=== PATIENT | female | born 1990 | race Caucasian/White ===

== ENCOUNTER 2018-04-22 09:23 | Observation (INO) | payer BC ==
[2018-04-23] MEDS ORDERED: Misoprostol 200 MCG Tab PO ONE ×3 (08:12→15:30)
[2018-04-23] MEDS ORDERED: Sodium Chloride 0.9% 10 ML Syringe FLUSH PRN (08:13)
[2018-04-23] MEDS ORDERED: Misoprostol 200 MCG Tab ONE (08:16)
[2018-04-23] MEDS: Lactated Ringers 1,000 ML IV SCH ×2 (08:42→11:00)
--- NOTE | 2018-04-23 08:44 | PCM.LDHP ---
<Jennifer Ziegler L - Last Filed: 04/23/18 08:19> L&D History of Present Illness - General Date of Service: 04/23/18 Admit Problem/Dx: Admission Diagnosis/Problem Admission Diagnosis/Problem Missed /Induction 04/23/18 08:20 04/23/18 08:51 Source of Information: Patient History Limitations: Reports: No Limitations - History of Present Illness Introduction:: Lora is a 27 YO white who presents today for induction following a missed . 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 Appointment at 16 4/7 wks had FHR (twin B) 136 by doppler. U/S at 19 3/7 wks showed no FHR, and measurements place the fetus at 15 5/7 wks, significant for probable missed . PMHx/SHx/FHx non-contributory. Location, : Reports: Uterus - Related Data Allergies/Adverse Reactions: Allergies Allergy/AdvReac Type Severity Reaction Status Date / Time No Known Allergies Allergy Verified 04/23/18 07:43 Home Medications: Home Meds PNV95/Ferrous Fumarate/FA [ Vitamin Tablet] 1 each PO DAILY 04/23/18 [ History] Past Medical History : 1 Para: 0 LMP (Approximate): Neurological History: Reports: Other (See Below) Other Neuro History: Pseudotumor cerebri Social & Family History - Family History Family Medical History: Noncontributory Cardiac: Reports: Other (See Below) Other Cardiac Family History: Heart disease maternal and paternal grandparents GI: Reports: Other (See Below) Other GI Family History: Biliary sclerosis - maternal grandmother Musculoskeletal: Reports: Other (See Below) Other Musculoskeletal Family History: Rheumatoid Arthritis - Sister Neurological: Reports: Cerebral Palsy (Uncle), MS (father) Endocrine/Metabolic: Reports: Diabetes, type II (maternal aunt and uncle) H&P Review of Systems - Review of Systems: General: Reports: No Symptoms HEENT: Reports: No Symptoms Pulmonary: Reports: No Symptoms Cardiovascular: Reports: No Symptoms Gastrointestinal: Reports: No Symptoms Genitourinary: Reports: No Symptoms Musculoskeletal: Reports: No Symptoms Skin: Reports: No Symptoms Psychiatric: Reports: No Symptoms Neurological: Reports: No Symptoms Hematologic/Lymphatic: Reports: No Symptoms Immunologic: Reports: No Symptoms L&D Exam - Exam Exam: See Below - Vital Signs Weight: 190 lb - Exam General: Alert, Oriented HEENT: PERRLA, Conjunctiva Clear, EACs Clear, EOMI, Hearing Intact, Mucosa Moist & [place], Nares Patent, Normal Nasal Septum, Posterior Pharynx Clear, TMs Clear Neck: Supple, Trachea Midline Lungs: Clear to Auscultation, Normal Respiratory Effort Cardiovascular: Regular Rate, Regular Rhythm GI/Abdominal Exam: Normal Bowel Sounds, Soft, Non-Tender, No Organomegaly, No Distention, No Mass, Pelvis Stable Rectal Exam: Normal Rectal Tone Genitourinary: Normal external exam, Normal bimanual exam Extremities: Normal Inspection, Normal Range of Motion, Non-Tender, No Pedal Edema, Normal Capillary Refill Skin: Warm, Dry, Intact Psychiatric: Alert, Normal Affect Orders Last 24hrs: Active Orders 24 hr Category Date Time Status Vital Signs [RC] PER UNIT ROUTINE Care 04/23/18 08:12 Active Regular Diet [DIET] Diet 04/23/18 Lunch Active Lactated Ringers [Ringers, Lactated] 1,000 ml Med 04/23/18 08:15 Active IV ASDIRECTED Sodium Chloride 0.9% [Saline Flush] Med 04/23/18 08:13 Active 10 ml FLUSH ASDIRECTED PRN Saline Lock Insert [OM.PC] Routine Oth 04/23/18 08:13 Ordered Medication Orders Lactated Ringer's (Ringers, Lactated) 1,000 mls @ 125 mls/hr IV ASDIRECTED MATTEO Sodium Chloride (Saline Flush) 10 ml FLUSH ASDIRECTED PRN PRN Reason: Keep Vein Open Assessment/Plan Comment:: Plan induction for passage of miscarried fetus. Misoprostol PV with possible pitocin supplementation, possible D&C PRN <Bolivar Shaikh - Last Filed: 04/23/18 09:06> L&D History of Present Illness - General Admit Problem/Dx: Admission Diagnosis/Problem Admission Diagnosis/Problem - History of Present Illness Introduction:: Blood type O-positive, antibody screen negative. HIV nonreactive. Hepatitis B surface antigen nonreactive. RPR nonreactive. GC and chlamydia not detected. Rubella immune. Image:/Hematocrit 13.5/39.6 H&P Review of Systems - Review of Systems: Review Of Systems: See Below L&D Exam - Vital Signs Vital Signs: Last Vital Signs Temp 97.8 F 04/23/18 08:12 Pulse 74 04/23/18 08:12 Resp 18 04/23/18 08:12 BP 124/62 04/23/18 08:12 Pulse Ox - Problem List (1) Missed with demise before 20 completed weeks of gestation SNOMED Code(s): 86555823 ICD Code: O02.1 - MISSED Status: Acute Current Visit: Yes (2) 17 weeks gestation of SNOMED Code(s): 90873350 ICD Code: Z3A.17 - 17 WEEKS GESTATION OF Status: Acute Current Visit: Yes (3) Vanishing twin syndrome SNOMED Code(s): 454050919 ICD Code: O31.21X0 - CONT PREG AFT UTERIN DTH OF ONE FTS OR MORE, FIRST TRI, UNSP Status: Acute Current Visit: Yes Problem List Initiated/Reviewed/Updated: No Orders Last 24hrs: Active Orders 24 hr Category Date Time Status Vital Signs [RC] PER UNIT ROUTINE Care 04/23/18 08:12 Active Regular Diet [DIET] Diet 04/23/18 Lunch Active Lactated Ringers [Ringers, Lactated] 1,000 ml Med 04/23/18 08:15 Active IV ASDIRECTED Sodium Chloride 0.9% [Saline Flush] Med 04/23/18 08:13 Active 10 ml FLUSH ASDIRECTED PRN Saline Lock Insert [OM.PC] Routine Oth 04/23/18 08:13 Ordered Medication Orders Lactated Ringer's (Ringers, Lactated) 1,000 mls @ 125 mls/hr IV ASDIRECTED MATTEO Last Admin: 04/23/18 08:42 Dose: 125 mls/hr Sodium Chloride (Saline Flush) 10 ml FLUSH ASDIRECTED PRN PRN Reason: Keep Vein Open Assessment/Plan Comment:: Patient seen and examined by me and discussed with the student.
--- NOTE | 2018-04-23 09:25 | PCM.SN ---
- Free Text/Narrative Note: 200 mcg cytotec x4 intravaginal at 0827, cervix long and closed, firm, posterior.
[2018-04-23] MEDS ORDERED: Atropine/Diphenoxylate 0.025-2.5 MG Tab PO PRN (10:58)
[2018-04-23] MEDS ORDERED: Ondansetron 4 MG/2 ML SDV IVPUSH PRN ×2 (11:02→18:53)
--- NOTE | 2018-04-23 11:26 | PCM.SN ---
- Free Text/Narrative Note: Cytotec 800 mcg placed in vagina, no cervical change as yet.
[2018-04-23] MEDS: Acetaminophen 325 MG Tab PO PRN ×2 (12:09→17:35)
--- NOTE | 2018-04-23 16:57 | PCM.SN ---
- Free Text/Narrative Note: Cytotec placed 800 mcg intravaginal. Cervix still closed, long, but patient experiencing stronger contractions.
[2018-04-23] MEDS ORDERED: fentaNYL 100 MCG/2 ML SDV EPIDUR PRN (18:53)
[2018-04-23] MEDS ORDERED: ePHEDrine 50 MG/ML SDV IVPUSH PRN (18:53)
[2018-04-23] MEDS ORDERED: diphenhydrAMINE 50 MG/ML SDV IVPUSH PRN (18:53)
[2018-04-23] MEDS ORDERED: Bupivacaine/fentaNYL/NS 100 ML Bag EPIDUR SCH (19:00)
[2018-04-23] MEDS ORDERED: Oxytocin/Lactated Ringers 20 UNIT/1,000 ML BAG IV ONE ×2 (19:23→21:16)
--- NOTE | 2018-04-23 19:58 | PCM.OPNOTE ---
- General Post-Op/Procedure Note Date of Surgery/Procedure: 04/23/18 Operative Procedure(s): Completion of missed surgically 59011 second trimester Pre Op Diagnosis: Z3A.16, diamniotic dichorionic twin gestation, missed , vanishing twin Post-Op Diagnosis: Same Anesthesia Technique: Moderate Sedation Primary Surgeon: Bolivar Shaikh Reason Data Systems Analyst Was Necessary: NA Role of Data Systems Analyst: NA EBL in mLs: 100 Complications: None Condition: Good Free Text/Narrative:: Intake & Output 04/23/18 04/23/18 04/23/18 06:59 14:59 22:59 Intake Total 1600 180 Balance 1600 180 Patient had spontaneous rupture membranes at 1858 hrs. on Saturday04/23/18 The first twin (twin A) delivered at 1917 hrs. examination strongly suggest male genitalia. Twin B delivered at 1925 hrs. gender was undetermined Both placentas appeared to be intact grossly-diamniotic dichorionic twin gestation. The missed with Completed surgically without difficulty. Placenta will be sent to the lab. Patient and have decided to have a service for the twins. Impression Z3A.16 Vanishing twin syndrome Dichorionic diamniotic twin gestation Missed -completed surgically
[2018-04-23] MEDS ORDERED: Acetaminophen 325 MG Tab PO PRN (20:07)
[2018-04-23] MEDS ORDERED: Ibuprofen 600 MG Tab PO PRN (20:07)
[2018-04-23] MEDS ORDERED: Oxytocin/Lactated Ringers 10 UNIT/1,000 ML BAG IV SCH (20:15)
--- NOTE | 2018-04-24 08:49 | PCM.DCSUM1 ---
Discharge Summary - Hospital Course Free Text/Narrative:: [facility] Post-Op/Procedure Note Patient Name: CARY MARTINEZ Date of : 89 Patient Status: Observation Attending Provider: Bolivar Shaikh Date: 04/23/18 19:50 Initialization Date: 04/23/18 19:50 - General Post-Op/Procedure Note Date of Surgery/Procedure: 04/23/18 Operative Procedure(s): Completion of missed surgically 57248 second trimester Pre Op Diagnosis: Z3A.16, diamniotic dichorionic twin gestation, missed , vanishing twin Post-Op Diagnosis: Same Anesthesia Technique: Moderate Sedation Primary Surgeon: Bolivar Shaikh Reason Glaze Carrier Was Necessary: NA Role of Glaze Carrier: NA EBL in mLs: 100 Complications: None Condition: Good Free Text/Narrative:: Intake & Output 04/23/18 04/23/18 04/23/18 06:59 14:59 22:59 Intake Total 1600 180 Balance 1600 180 Patient had spontaneous rupture membranes at 1858 hrs. on Saturday04/23/18 The first twin (twin A) delivered at 1917 hrs. examination strongly suggest male genitalia. Twin B delivered at 1925 hrs. gender was undetermined Both placentas appeared to be intact grossly-diamniotic dichorionic twin gestation. The missed with Completed surgically without difficulty. Placenta will be sent to the lab. Patient and have decided to have a service for the twins. Impression Z3A.16 Vanishing twin syndrome Dichorionic diamniotic twin gestation Missed -completed surgically Quant [facility] [place] 315 on 04/24/2018 HPI Initial Comments: [facility] Post-Op/Procedure Note Patient Name: CARY MARTINEZ Date of : 89 Patient Status: Observation Attending Provider: Bolivar Shaikh Date: 04/23/18 19:50 Initialization Date: 04/23/18 19:50 - General Post-Op/Procedure Note Date of Surgery/Procedure: 04/23/18 Operative Procedure(s): Completion of missed surgically 73798 second trimester Pre Op Diagnosis: Z3A.16, diamniotic dichorionic twin gestation, missed , vanishing twin Post-Op Diagnosis: Same Anesthesia Technique: Moderate Sedation Primary Surgeon: Bolivar Shaikh Reason Glaze Carrier Was Necessary: NA Role of Glaze Carrier: NA EBL in mLs: 100 Complications: None Condition: Good Free Text/Narrative:: Intake & Output 04/23/18 04/23/18 04/23/18 06:59 14:59 22:59 Intake Total 1600 180 Balance 1600 180 Patient had spontaneous rupture membranes at 1858 hrs. on Saturday04/23/18 The first twin (twin A) delivered at 1917 hrs. examination strongly suggest male genitalia. Twin B delivered at 1925 hrs. gender was undetermined Both placentas appeared to be intact grossly-diamniotic dichorionic twin gestation. The missed with Completed surgically without difficulty. Placenta will be sent to the lab. Patient and have decided to have a service for the twins. Impression Z3A.16 Vanishing twin syndrome Dichorionic diamniotic twin gestation Missed -completed surgically Quant [facility] [place] 315 on 04/24/2018 Brief History: [facility] . Post-Op/Procedure Note. [facility]: [id number]. Date of : Patient Status: Observation. [facility]ending [facility]: [id number]. Date: 04/23/18 19:50Initialization Date: 04/23/18 19:50. - General Post-Op/Procedure Note. Date of Surgery/Procedure: 04/23/18. Operative Procedure(s): Completion of missed surgically 17652 second trimester. Pre Op Diagnosis: Z3A.16, diamniotic dichorionic twin gestation, missed , vanishing twin. Post-Op Diagnosis: Same. Anesthesia Technique : Moderate Sedation. Primary Surgeon: Bolivar Shaikh. Reason Glaze Carrier Was Necessary: NA. Role of Glaze Carrier: NA. EBL in mLs: 100. Complications: None. Condition: Good. Free Text/Narrative:: Intake & Output. 04/23/1808/ . 06:5914:5922:59. Intake [id number]. [id number]. Patient had spontaneous rupture membranes at 1858 hrs. on Saturday04/23/18. The first twin (twin A) delivered at 1917 hrs. examination strongly suggest male genitalia. Twin B delivered at 1925 hrs. gender was undetermined. Both placentas appeared to be intact grossly-diamniotic dichorionic twin gestation. The missed with. Completed surgically without difficulty. Placenta will be sent to the lab. Patient and have decided to have a service for the twins. Impression. Z3A.16. Vanishing twin syndrome. Dichorionic diamniotic twin gestation. Missed -completed surgically. Quant [facility] [place] 315 on 04/24/2018 Diagnosis: Stroke: No - Discharge Data Discharge Date: 04/24/18 Discharge Disposition: Home, Self-Care 01 Condition: Good - Discharge Diagnosis/Problem(s) (1) Missed with demise before 20 completed weeks of gestation SNOMED Code(s): 28581117 ICD Code: O02.1 - MISSED Status: Acute Current Visit: Yes (2) 17 weeks gestation of SNOMED Code(s): 26043973 ICD Code: Z3A.17 - 17 WEEKS GESTATION OF Status: Acute Current Visit: Yes (3) Vanishing twin syndrome SNOMED Code(s): 813337990 ICD Code: O31.21X0 - CONT PREG AFT UTERIN DTH OF ONE FTS OR MORE, FIRST TRI, UNSP Status: Acute Current Visit: Yes - Patient Summary/Data Operative Procedure(s) Performed: Completion of missed surgically 62071 second trimester Complications: None Consults: None Hospital Course: Uneventful - Patient Instructions Diet: Usual Diet as Tolerated Driving: Do Not Drive (48 hours) Showering/Bathing: May Shower, No Tub Bathing/Swimming (6 weeks) Notify Provider of: Fever, Increased Pain, Swelling and Redness, Drainage, Nausea and/or Vomiting - Discharge Plan *PRESCRIPTION DRUG MONITORING PROGRAM REVIEWED*: Not Applicable *COPY OF PRESCRIPTION DRUG MONITORING REPORT IN PATIENT SEVEN: Not Applicable Prescriptions/Med Rec: Acetaminophen [Tylenol] 650 mg PO Q6H #50 tablet Home Medications: Home Meds PNV95/Ferrous Fumarate/FA [ Vitamin Tablet] 1 each PO DAILY 04/23/18 [ History] Acetaminophen [Tylenol] 650 mg PO Q6H #50 tablet 04/24/18 [Rx] Ibuprofen [Motrin] 600 mg PO Q4H PRN tablet 04/24/18 [Rx] Referrals: Bolivar Shaikh MD [Primary Care Provider] - (2 weeks) - Discharge Summary/Plan Comment DC Time >30 min.: No - Patient Data Vitals - Most Recent: Last Vital Signs Temp 97.8 F 04/24/18 03:00 Pulse 76 04/24/18 03:00 Resp 16 04/24/18 03:00 BP 134/52 L 04/24/18 03:00 Pulse Ox 97 04/24/18 03:00 Weight - Most Recent: 190 lb I&O - Last 24 hours: Intake & Output 04/23/18 04/24/18 04/24/18 22:59 06:59 14:59 Intake Total 180 Balance 180 Lab Results - Last 24 hrs: Laboratory Results - last 24 hr 04/23/18 04/23/18 04/24/18 Range/Units 10:14 10:14 05:55 WBC 9.61 11.89 H (3.98-10.04) K/mm3 RBC 4.15 3.71 L (3.98-5.22) M/mm3 Hgb 13.1 11.5 (11.2-15.7) gm/L Hct 38.2 34.3 (34.1-44.9) % MCV 92.0 92.5 (79.4-94.8) fl MCH 31.6 31.0 (25.6-32.2) pg MCHC 34.3 33.5 (32.2-35.5) g/dl RDW Std Deviation 42.7 41.8 (36.4-46.3) fL Plt Count 212 206 (182-369) K/mm3 MPV 10.1 10.0 (9.4-12.3) fl Neut % (Auto) 77.6 H 73.3 H (34.0-71.1) % Lymph % (Auto) 15.7 L 18.3 L (19.3-51.7) % Ford % (Auto) 6.1 7.9 (4.7-12.5) % Eos % (Auto) 0.3 L 0.3 L (0.7-5.8) Baso % (Auto) 0.1 0.1 (0.1-1.2) % Neut # (Auto) 7.45 H 8.72 H (1.56-6.13) K/mm3 Lymph # (Auto) 1.51 2.17 (1.18-3.74) K/mm3 Ford # (Auto) 0.59 H 0.94 H (0.24-0.36) K/mm3 Eos # (Auto) 0.03 L 0.04 (0.04-0.36) K/mm3 Baso # (Auto) 0.01 0.01 (0.01-0.08) K/mm3 HCG, Quant mIU/mL Blood Type O POSITIVE Gel Antibody Screen Negative 04/24/18 Range/Units 05:55 WBC (3.98-10.04) K/mm3 RBC (3.98-5.22) M/mm3 Hgb (11.2-15.7) gm/L Hct (34.1-44.9) % MCV (79.4-94.8) fl MCH (25.6-32.2) pg MCHC (32.2-35.5) g/dl RDW Std Deviation (36.4-46.3) fL Plt Count (182-369) K/mm3 MPV (9.4-12.3) fl Neut % (Auto) (34.0-71.1) % Lymph % (Auto) (19.3-51.7) % Ford % (Auto) (4.7-12.5) % Eos % (Auto) (0.7-5.8) Baso % (Auto) (0.1-1.2) % Neut # (Auto) (1.56-6.13) K/mm3 Lymph # (Auto) (1.18-3.74) K/mm3 Ford # (Auto) (0.24-0.36) K/mm3 Eos # (Auto) (0.04-0.36) K/mm3 Baso # (Auto) (0.01-0.08) K/mm3 HCG, Quant 315.0 mIU/mL Blood Type Gel Antibody Screen Med Orders - Current: Current Medications Acetaminophen (Tylenol) 650 mg PO Q4H PRN PRN Reason: mild pain or fever Last Admin: 04/23/18 23:13 Dose: 650 mg Oxytocin/Lactated Ringer's (Pitocin In Lr 10 Units/1,000 Ml) 10 unit in 1,000 mls @ 100 mls/hr IV ASDIRECTED [facility] Ibuprofen (Motrin) 600 mg PO Q4H PRN PRN Reason: Mild pain or fever Last Admin: 04/24/18 00:58 Dose: 600 mg Discontinued Medications Acetaminophen (Tylenol) 650 mg PO Q6H PRN PRN Reason: pain Last Admin: 04/23/18 17:35 Dose: 650 mg Diphenhydramine HCl (Benadryl) 25 mg IVPUSH Q6H PRN PRN Reason: Pruritis Diphenoxylate HCl/Atropine (Lomotil 0.025-2.5 Mg) 2 tab PO QID PRN PRN Reason: Diarrhea Ephedrine Sulfate (Ephedrine Sulfate) 5 mg IVPUSH ASDIRECTED PRN PRN Reason: Hypotension Fentanyl (Sublimaze) 100 mcg EPIDUR ONETIME PRN PRN Reason: Pain Fentanyl/Bupivacaine HCl (Fentanyl/Bupivacaine/Ns 2 Mcg-0.125% 100 Ml) 100 ml EPIDUR ASDIRECTED [facility] Lactated Ringer's (Ringers, Lactated) 1,000 mls @ 125 mls/hr IV ASDIRECTED [facility] Last Admin: 04/23/18 11:00 Dose: 125 mls/hr Oxytocin/Lactated Ringer's (Pitocin In Lr 20 Units/1,000 Ml) Confirm Administered Dose 20 unit in 1,000 mls @ as directed IV .STK-MED ONE Stop: 04/23/18 19:24 Last Admin: 04/23/18 19:25 Dose: 750 mls/hr Oxytocin 20 unit/ Lactated (Ringer's) 1,002 mls @ 500 mls/hr IV ASDIRECTED [facility] ; Protocol Oxytocin/Lactated Ringer's (Pitocin In Lr 20 Units/1,000 Ml) Confirm Administered Dose 20 unit in 1,000 mls @ as directed IV .STK-MED ONE Stop: 04/23/18 21:17 Last Admin: 04/23/18 21:24 Dose: 100 mls/hr Misoprostol (Cytotec) 800 mcg PO ONETIME ONE Stop: 04/23/18 08:13 Last Admin: 04/23/18 08:39 Dose: 800 mcg Misoprostol (Cytotec) Confirm Administered Dose 800 mcg .ROUTE .STK-MED ONE Stop: 04/23/18 08:17 Last Admin: 04/23/18 11:06 Dose: Not Given Misoprostol (Cytotec) 800 mcg PO ONETIME ONE Stop: 04/23/18 11:31 Last Admin: 04/23/18 11:30 Dose: 800 mcg Misoprostol (Cytotec) 800 mcg PO ONETIME ONE Stop: 04/23/18 15:31 Last Admin: 04/23/18 16:55 Dose: 800 mcg Ondansetron HCl (Zofran) 4 mg IVPUSH Q8H PRN PRN Reason: Nausea/Vomiting Ondansetron HCl (Zofran) 4 mg IVPUSH ONETIME PRN PRN Reason: Nausea/Vomiting Sodium Chloride (Saline Flush) 10 ml FLUSH ASDIRECTED PRN PRN Reason: Keep Vein Open
== END 2018-04-24 09:45 | disposition home or self-care (01) ==
LOC: JD.OBCHECK 09:23 → JD.OB 04-23 06:53 → JD.OBCHECK 04-23 06:53 → EDSTATUS 04-23 07:38 → JD.OB 04-23 19:25
PROVIDERS: ADMIT Obstetrics & Gynecology; ATTEND Obstetrics & Gynecology
DX: O02.1 Missed abortion (principal); O31.22X1 Continuing pregnancy after intrauterine death of one fetus or more, second trimester, fetus 1; O31.22X2 Continuing pregnancy after intrauterine death of one fetus or more, second trimester, fetus 2
CPT/HCPCS: 36415; 59821; 84702; 85025; 86850; 86900; 86901; A9270; J2590; J7120; 96361; 96365; 96366; G0378

== ENCOUNTER 2019-02-06 00:38 | Inpatient (IN) | payer BC ==
[2019-02-06] MEDS ORDERED: Lactated Ringers 1,000 ML ONE ×3 (02:09→03:47)
[2019-02-06] MEDS ORDERED: Sodium Chloride 0.9% 10 ML Syringe FLUSH PRN ×2 (02:09→04:32)
[2019-02-06] MEDS ORDERED: Nalbuphine 10 MG/1 ML Vial IVPUSH PRN (02:09)
[2019-02-06] MEDS ORDERED: Lactated Ringers 1,000 ML IV SCH (02:15)
[2019-02-06] MEDS ORDERED: Metoclopramide 10 MG/2 ML SDV ONE (02:59)
[2019-02-06] MEDS ORDERED: Citric Acid/Sodium Citrate Solution 30 ML Cup ONE (02:59)
--- NOTE | 2019-02-06 03:10 | PCM.LDHP ---
L&D History of Present Illness - General Date of Service: 02/06/19 Admit Problem/Dx: Patient Status Order with Admit Dx/Problem 02/06/19 00:58 Patient Status [ADT] Routine 02/06/19 02:10 Patient Status [ADT] Routine Admission Diagnosis/Problem Admission Diagnosis/Problem Source of Information: Patient History Limitations: Reports: No Limitations - History of Present Illness Introduction:: 28 y/o EGA 29w3d with breech/transverse lie completely dilated and spontaneous rupture of membranes at approximately 0245, clear fluid.Plan emergency section Quality: Reports: Ache, Dull, Pressure Improves with: Reports: None Worsens with: Reports: None Associated Symptoms: Reports: N - Related Data Allergies/Adverse Reactions: Allergies Allergy/AdvReac Type Severity Reaction Status Date / Time No Known Allergies Allergy Verified 02/06/19 01:33 Home Medications: Home Meds PNV95/Ferrous Fumarate/FA [ Vitamin Tablet] 1 each PO DAILY 04/23/18 [ History] Acetaminophen [Tylenol] 650 mg PO Q6H #50 tablet 04/24/18 [Rx] Ibuprofen [Motrin] 600 mg PO Q4H PRN tablet 04/24/18 [Rx] Past Medical History - Past Health History Medical/Surgical History: Denies Medical/Surgical History Gastrointestinal History: Reports: None 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: Neurological History: Reports: Other (See Below) Other Neuro History: Pseudotumor cerebri - Past Surgical History GI Surgical History: Reports: Cholecystectomy Social & Family History - Family History Family Medical History: Noncontributory Cardiac: Reports: Other (See Below) Other Cardiac Family History: Heart disease maternal and paternal grandparents GI: Reports: Other (See Below) Other GI Family History: Biliary sclerosis - maternal grandmother Musculoskeletal: Reports: Other (See Below) Other Musculoskeletal Family History: Rheumatoid Arthritis - Sister Neurological: Reports: Cerebral Palsy, MS Endocrine/Metabolic: Reports: Diabetes, type II - Tobacco Use Smoking Status *Q: Never Smoker Second Hand Smoke Exposure: No - Caffeine Use Caffeine Use: Reports: None - Recreational Drug Use Recreational Drug Use: No H&P Review of Systems - Review of Systems: Review Of Systems: See Below General: Reports: No Symptoms HEENT: Reports: No Symptoms Pulmonary: Reports: No Symptoms Cardiovascular: Reports: No Symptoms Gastrointestinal: Reports: No Symptoms Genitourinary: Reports: No Symptoms Musculoskeletal: Reports: No Symptoms Skin: Reports: No Symptoms Psychiatric: Reports: No Symptoms Neurological: Reports: No Symptoms Hematologic/Lymphatic: Reports: No Symptoms Immunologic: Reports: No Symptoms L&D Exam - Exam Exam: See Below - Vital Signs Weight: 224 lb - OB Specific Fundal Height In cm: 36 Movement: Active Heart Tones: Present Heart Tones per Min: 140 (135) Heart Rate (FHR) Variability: Moderate (6-25 bmp) Presentation: Breech - Medina Score Medina Score Cervix Position: Anterior Medina Score Consistency: Soft Medina Score Dilation: > 5 cm Medina Score 's Station: +1, +2 - Exam General: Alert, Oriented HEENT: Conjunctiva Clear, Mucosa Moist & [place], PERRLA Neck: Supple, Trachea Midline Lungs: Clear to Auscultation, Normal Respiratory Effort Cardiovascular: Regular Rate, Regular Rhythm GI/Abdominal Exam: Normal Bowel Sounds, Soft, Non-Tender Genitourinary: Normal external exam, Normal bimanual exam, Normal speculum exam Back Exam: Normal Inspection, Full Range of Motion Extremities: Normal Inspection, Normal Range of Motion, Non-Tender, No Pedal Edema, Normal Capillary Refill Skin: Warm, Dry, Intact Neurological: Reflexes Equal Bilateral Psychiatric: Alert, Normal Affect, Normal Mood - Patient Data Lab Results Last 24 hrs: Laboratory Results - last 24 hr 02/06/19 02/06/19 Range/Units 01:30 02:20 WBC 14.95 H (3.98-10.04) K/mm3 RBC 4.09 (3.98-5.22) M/mm3 Hgb 12.7 (11.2-15.7) gm/L Hct 36.9 (34.1-44.9) % MCV 90.2 (79.4-94.8) fl MCH 31.1 (25.6-32.2) pg MCHC 34.4 (32.2-35.5) g/dl RDW Std Deviation 42.4 (36.4-46.3) fL Plt Count 170 L (182-369) K/mm3 MPV 10.7 (9.4-12.3) fl Neut % (Auto) 73.8 H (34.0-71.1) % Lymph % (Auto) 17.3 L (19.3-51.7) % [place] % (Auto) 8.0 (4.7-12.5) % Eos % (Auto) 0.3 L (0.7-5.8) Baso % (Auto) 0.1 (0.1-1.2) % Neut # (Auto) 11.04 H (1.56-6.13) K/mm3 Lymph # (Auto) 2.58 (1.18-3.74) K/mm3 [place] # (Auto) 1.20 H (0.24-0.36) K/mm3 Eos # (Auto) 0.04 (0.04-0.36) K/mm3 Baso # (Auto) 0.02 (0.01-0.08) K/mm3 Urine Color Yellow (Yellow) Urine Appearance Clear (Clear) Urine pH 7.0 (5.0-8.0) Ur Specific [place] 1.015 (1.005-1.030) Urine Protein Negative (Negative) Urine Glucose (UA) Negative (Negative) Urine Ketones Negative (Negative) Urine Occult Blood Trace-intact H (Negative) Urine Nitrite Negative (Negative) Urine Bilirubin Negative (Negative) Urine Urobilinogen 0.2 (0.2-1.0) Ur Leukocyte Esterase 2+ H (Negative) Urine RBC 0-5 (0-5) /hpf Urine WBC 5-10 H (0-5) /hpf Ur Squamous Epith Cells 0-5 (0-5) /hpf Urine Bacteria Few (FEW) /hpf Urine Mucus Few (FEW) /hpf Result Diagrams: 02/06/19 02:20 - Problem List (1) 29 weeks gestation of SNOMED Code(s): 70211843 ICD Code: Z3A.29 - 29 WEEKS GESTATION OF Status: Acute Current Visit: Yes (2) Premature labor SNOMED Code(s): 0955665 ICD Code: O60.00 - LABOR WITHOUT DELIVERY, UNSPECIFIED TRIMESTER Status: Acute Current Visit: Yes Qualifiers: labor trimester: third trimester labor delivery status: with delivery in third trimester Fetus number: fetus 1 of multiple gestation Qualified Code(s): O60.14X1 - labor third trimester with delivery third trimester, fetus 1 (3) Breech presentation SNOMED Code(s): 0096524 ICD Code: O32.1XX0 - MATERNAL CARE FOR BREECH PRESENTATION, UNSP Status: Acute Current Visit: Yes Qualifiers: Fetus number: fetus 1 of multiple gestation Qualified Code(s): O32.1XX1 - Maternal care for breech presentation, fetus 1 (4) Transverse lie of fetus SNOMED Code(s): 98765329 ICD Code: O32.2XX0 - MATERNAL CARE FOR TRANSVERSE AND OBLIQUE LIE, UNSP Status: Acute Current Visit: Yes Qualifiers: Fetus number: fetus 2 of multiple gestation Qualified Code(s): O32.2XX2 - Maternal care for transverse and oblique lie, fetus 2 (5) Dichorionic diamniotic twin in second trimester SNOMED Code(s): 201201833 ICD Code: O30.042 - TWIN , DICHORIONIC/DIAMNIOTIC, SECOND TRIMESTER Status: Acute Current Visit: No Problem List Initiated/Reviewed/Updated: No Orders Last 24hrs: Active Orders 24 hr Category Date Time Status Patient Status [ADT] Routine ADT 02/06/19 02:10 Active Activity as Tolerated [RC] PFP Care 02/06/19 02:10 Active Communication Order [RC] ASDIRECTED Care 02/06/19 02:10 Active Heart Tones [RC] ASDIRECTED Care 02/06/19 02:10 Active Non Stress Test [RC] PER UNIT ROUTINE Care 02/06/19 00:58 Active Non Stress Test [RC] PER UNIT ROUTINE Care 02/06/19 02:10 Active Notify Provider [RC] PFP Care 02/06/19 02:10 Active Notify Provider [RC] PRN Care 02/06/19 02:10 Active Peripheral IV Care [RC] . DIRECTED Care 02/06/19 02:10 Active Vital Signs [RC] PER UNIT ROUTINE Care 02/06/19 00:58 Active Vital Signs [RC] PER UNIT ROUTINE Care 02/06/19 02:10 Active OB Ltd 1 or More Fetus [US] Routine Exams 02/06/19 02:06 Ordered CULTURE URINE [RM] Routine Lab 02/06/19 01:30 Received RAPID PLASMA REAGIN,RPR [CHEM] Routine Lab 02/06/19 02:20 Received TYPE AND SCREEN [BBK] Stat Lab 02/06/19 02:20 Received Lactated Ringers [Ringers, Lactated] 1,000 ml Med 02/06/19 02:15 Active IV ASDIRECTED Nalbuphine [Nubain] Med 02/06/19 02:09 Active 10 mg IVPUSH Q2H PRN Sodium Chloride 0.9% [Saline Flush] Med 02/06/19 02:09 Active 10 ml FLUSH ASDIRECTED PRN Electronic Heart Tones Ext w TOCO [WOMSER] Oth 02/06/19 02:10 Ordered Routine Electronic Heart Tones Internal [WOMSER] Per Unit Ot 02/06/19 02:10 Ordered Routine Peripheral IV Insertion Adult [OM.PC] Routine Oth 02/06/19 02:10 Ordered Resuscitation Status Routine Resus Stat 02/06/19 00:58 Ordered Medication Orders Lactated Ringer's (Ringers, Lactated) 1,000 mls @ 100 mls/hr IV ASDIRECTED MATTEO Nalbuphine HCl (Nubain) 10 mg IVPUSH Q2H PRN PRN Reason: Pain Sodium Chloride (Saline Flush) 10 ml FLUSH ASDIRECTED PRN PRN Reason: Keep Vein Open Assessment/Plan Comment:: emergency delivery by section if possible
--- NOTE | 2019-02-06 03:11 | PCM.PREANE ---
Preanesthetic Assessment - Anesthesia/Transfusion/Family Hx Anesthesia History: Prior Anesthesia Without Reaction Family History of Anesthesia Reaction: No Transfusion History: No Prior Transfusion(s) Intubation History: Unknown - Review of Systems General: No Symptoms Pulmonary: No Symptoms Cardiovascular: No Symptoms Gastrointestinal: No Symptoms (GERD) Neurological: No Symptoms Other: Reports: None - Physical Assessment NPO Status Date: 02/05/19 NPO Status Time: 19:00 Pulse: 67 O2 Sat by Pulse Oximetry: 99 Respiratory Rate: 20 Blood Pressure: 137/62 Temperature: 37.1 C Height: 1.63 m Weight: 101.605 kg ASA Class: 2E Mental Status: Alert & Oriented x3 Airway Class: Mallampati = 2 Dentition: Reports: Normal Dentition, Caries Thyro-Mental Finger Breadths: 3 Mouth Opening Finger Breadths: 3 ROM/Head Extension: Full Lungs: Clear to Auscultation, Normal Respiratory Effort Cardiovascular: Regular Rate, Regular Rhythm, No Murmurs - Lab Values: Laboratory Last Values WBC 14.95 K/mm3 (3.98-10.04) H 02/06/19 02:20 RBC 4.09 M/mm3 (3.98-5.22) 02/06/19 02:20 Hgb 12.7 gm/L (11.2-15.7) 02/06/19 02:20 Hct 36.9 % (34.1-44.9) 02/06/19 02:20 MCV 90.2 fl (79.4-94.8) 02/06/19 02:20 MCH 31.1 pg (25.6-32.2) 02/06/19 02:20 MCHC 34.4 g/dl (32.2-35.5) 02/06/19 02:20 RDW Std Deviation 42.4 fL (36.4-46.3) 02/06/19 02:20 Plt Count 170 K/mm3 (182-369) L 02/06/19 02:20 MPV 10.7 fl (9.4-12.3) 02/06/19 02:20 Neut % (Auto) 73.8 % (34.0-71.1) H 02/06/19 02:20 Lymph % (Auto) 17.3 % (19.3-51.7) L 02/06/19 02:20 [place] % (Auto) 8.0 % (4.7-12.5) 02/06/19 02:20 Eos % (Auto) 0.3 (0.7-5.8) L 02/06/19 02:20 Baso % (Auto) 0.1 % (0.1-1.2) 02/06/19 02:20 Neut # (Auto) 11.04 K/mm3 (1.56-6.13) H 02/06/19 02:20 Lymph # (Auto) 2.58 K/mm3 (1.18-3.74) 02/06/19 02:20 [place] # (Auto) 1.20 K/mm3 (0.24-0.36) H 02/06/19 02:20 Eos # (Auto) 0.04 K/mm3 (0.04-0.36) 02/06/19 02:20 Baso # (Auto) 0.02 K/mm3 (0.01-0.08) 02/06/19 02:20 Urine Color Yellow (Yellow) 02/06/19 01:30 Urine Appearance Clear (Clear) 02/06/19 01:30 Urine pH 7.0 (5.0-8.0) 02/06/19 01:30 Ur Specific [place] 1.015 (1.005-1.030) 02/06/19 01:30 Urine Protein Negative (Negative) 02/06/19 01:30 Urine Glucose (UA) Negative (Negative) 02/06/19 01:30 Urine Ketones Negative (Negative) 02/06/19 01:30 Urine Occult Blood Trace-intact (Negative) H 02/06/19 01:30 Urine Nitrite Negative (Negative) 02/06/19 01:30 Urine Bilirubin Negative (Negative) 02/06/19 01:30 Urine Urobilinogen 0.2 (0.2-1.0) 02/06/19 01:30 Ur Leukocyte Esterase 2+ (Negative) H 02/06/19 01:30 Urine RBC 0-5 /hpf (0-5) 02/06/19 01:30 Urine WBC 5-10 /hpf (0-5) H 02/06/19 01:30 Ur Squamous Epith Cells 0-5 /hpf (0-5) 02/06/19 01:30 Urine Bacteria Few /hpf (FEW) 02/06/19 01:30 Urine Mucus Few /hpf (FEW) 02/06/19 01:30 All lab values reviewed and noted and within acceptable ranges to proceed with procedure. 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: Neurological History: Reports: Other (See Below) Other Neuro History: Pseudotumor cerebri - Past Surgical History GI Surgical History: Reports: Cholecystectomy - SUBSTANCE USE Smoking Status *Q: Never Smoker Second Hand Smoke Exposure: No Recreational Drug Use History: No - HOME MEDS Home Medications: Home Meds PNV95/Ferrous Fumarate/FA [ Vitamin Tablet] 1 each PO DAILY 04/23/18 [ History] Acetaminophen [Tylenol] 650 mg PO Q6H #50 tablet 04/24/18 [Rx] Ibuprofen [Motrin] 600 mg PO Q4H PRN tablet 04/24/18 [Rx] - CURRENT (IN HOUSE) MEDS Current Meds: Current Medications Lactated Ringer's (Ringers, Lactated) 1,000 mls @ 100 mls/hr IV ASDIRECTED MATTEO Nalbuphine HCl (Nubain) 10 mg IVPUSH Q2H PRN PRN Reason: Pain Sodium Chloride (Saline Flush) 10 ml FLUSH ASDIRECTED PRN PRN Reason: Keep Vein Open Discontinued Medications Citric Acid/Sodium Citrate (Bicitra Solution) Confirm Administered Dose 30 ml .ROUTE .STK-MED ONE Stop: 02/06/19 03:00 Lactated Ringer's (Ringers, Lactated) Confirm Administered Dose 1,000 mls @ as directed .ROUTE .STK-MED ONE Stop: 02/06/19 02:10 Metoclopramide HCl (Reglan) Confirm Administered Dose 10 mg .ROUTE .STK-MED ONE Stop: 02/06/19 03:00
[2019-02-06] MEDS ORDERED: Oxytocin 10 Units/1 ML SDV ONE (03:18)
[2019-02-06] MEDS ORDERED: Ondansetron 4 MG/2 ML SDV ONE (03:18)
[2019-02-06] MEDS ORDERED: ceFAZolin 1 GM Vial ONE (03:18)
[2019-02-06] MEDS ORDERED: Lanolin/Mineral Oil/Petrolatum Ophth Oint 3.5 GM Tube ONE (03:18)
[2019-02-06] MEDS ORDERED: Morphine PF 10 MG/10 ML SDV ONE (03:19)
[2019-02-06] MEDS ORDERED: Ketorolac 30 MG/ML SDV ONE (03:41)
[2019-02-06] MEDS ORDERED: Phenylephrine/Normal Saline 100 MCG/ML 10 ML Syringe ONE (03:42)
[2019-02-06] MEDS ORDERED: Bupivacaine 0.5% 30 ML SDV ONE (03:44)
[2019-02-06] MEDS ORDERED: Meperidine 50 MG/ML Vial ONE (03:45)
[2019-02-06] MEDS ORDERED: diphenhydrAMINE 50 MG/ML SDV IVPUSH PRN ×2 (03:50→04:32)
[2019-02-06] MEDS ORDERED: HYDROmorphone 0.5 MG/0.5 ML Syringe IVPUSH PRN (03:50)
[2019-02-06] MEDS ORDERED: fentaNYL 100 MCG/2 ML SDV IVPUSH PRN (03:50)
[2019-02-06] MEDS ORDERED: ePHEDrine 50 MG/ML SDV IVPUSH PRN ×2 (03:50→04:32)
[2019-02-06] MEDS ORDERED: Ondansetron 4 MG/2 ML SDV IVPUSH PRN (03:50)
[2019-02-06] MEDS ORDERED: Phenylephrine 1 MG in Sodium Chloride 0.9% 10 ML IV SCH (04:00)
--- NOTE | 2019-02-06 04:18 | PCM.OPNOTE ---
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 Timeout performed. Prepared and draped in a sterile fashion utilizing iodine prep. Adequate level of anesthesia was confirmed and in the operating room transverse incision made and care was sharp section to into the anterior fascia peritoneal cavity was entered without difficulty bladder flap created pushed caudad. Low segment transverse was performed with blood-tinged amnionic fluid upon entry into the amnionic cavity. Nurse assisted pushing the breech vaginally towards the incision and the head of the breech was carefully delivered and the remaining portion the body was delivered. Twin A's cord was clamped with a straight clamp. Twin B was transverse lie with head to the maternal left the feet were grasped and the breech was carefully delivered through the incision gently delivering the right and left arm and head without difficulty. When these cord was clamped with a curved clamp. Cord blood was then collected from twin A and then twin B's cord and the placenta was removed manually. Inspection of the placenta suggested possible marginal abruption on one edge of the placenta, placenta sent to pathology for tissue evaluation. Endometrial cavity was inspected. Sponge needle pack and asthma count correct upon closure of the uterus. Both tubes and ovaries appeared normal. The low segment transverse was closed in 2 layers using 0 Monocryl running locking suture for the first layer and second layer closed with a horizontal modified Lembert suture (imbricating) hemostasis was obtained one additional [id number] suture at the junction of the left and middle third of the incision. Uterus replaced into the abdominal cavity after cleaning clots from the gutters and cul-de-sac. Reinspection of the operative site showed no bleeding. Sponge needle pack instrument count correct 2 and the abdominal cavity was closed with #1 PDS running suture. The irrigation of subcutaneoustissue was performed and skin was closed with subcuticular 3-0 Monocryl with Henry needle and Dermabond Preneo applied. Clots were cleaned from the vagina at the end the procedure. Patient was transported postanesthesia care unit in satisfactory condition. Twin A was delivered at 0334 hrs 1250 Grams/2#12..1 oz, 4/6/7.. male liveborn twin B was delivered at 0336 hrs, female liveborn 1350 grams/2#15.6 oz 0/3/7 pediatricians were present at delivery (Dr. Ruiz, Dr. Dc) and cared for the newborns. This note was created, at least in part, by the use of [employer] voice dictation system. Inadvertent typographical errors, due to software recognition problems, may exist.
--- NOTE | 2019-02-06 04:20 | PCM.POSTAN ---
POST ANESTHESIA ASSESSMENT - MENTAL STATUS Mental Status: Alert - VITAL SIGNS Pulse Rate: 68 SaO2: 100 Resp Rate: 17 Blood Pressure: 99/51 Temperature: 36.6 C - RESPIRATORY Respiratory Status: Respiratory Rate WNL, Airway Patent, O2 Saturation Stable - CARDIOVASCULAR CV Status: Pulse Rate WNL, Blood Pressure Stable - GASTROINTESTINAL GI Status: No Symptoms - POST OP HYDRATION Hydration Status: Adequate & Stable
[2019-02-06] MEDS ORDERED: Dextrose 5%-Lactated Ringers 1,000 ML IV SCH (04:32)
[2019-02-06] MEDS ORDERED: Ondansetron 4 MG/2 ML SDV IV PRN (04:32)
[2019-02-06] MEDS ORDERED: Acetaminophen/oxyCODONE 325-5 MG Tab PO PRN (04:32)
[2019-02-06] MEDS ORDERED: Lanolin 100% Cream 7 GM Tube TOP PRN (04:32)
[2019-02-06] MEDS ORDERED: Naloxone 0.4 MG/ML SDV IVPUSH PRN (04:32)
[2019-02-06] MEDS ORDERED: Acetaminophen 325 MG Tab PO PRN (04:32)
--- NOTE | 2019-02-06 07:38 | US ---
Limited obstetrical ultrasound: Multiple real-time images were obtained for position. Twin gestation is seen. Fetus is breech in presentation and inferior to twin B. Twin B is transverse in position with head to maternal left side and superior in location to twin A. Placenta is posterior. Cervix is not well seen. Amniotic fluid: Largest pocket around twin A is 0.6 cm and largest pocket around twin B is 6.3 cm. Heart rate: Twin A: 135 bpm Twin B: 150 bpm Impression: 1. Position as noted above. Oligohydramnios noted compatible with clinical history of impending delivery. Diagnostic code #2 I agree with preliminary report from [facility], finalized on 02/06/19, 5:19 AM Central Time
[2019-02-06] MEDS: Simethicone 80 MG Tab.Chew PO SCH ×3 (08:25→16:02)
[2019-02-06] MEDS: Ketorolac 30 MG/ML SDV IVPUSH SCH ×2 (10:09→16:02)
--- NOTE | 2019-02-06 10:39 | PCM.DCSUM1 ---
Discharge Summary - Hospital Course Free Text/Narrative:: [facility] Post-Op/Procedure Note Patient Name: CARY MARTINEZ Date of : 89 Patient Status: Inpatient Attending Provider: Bolivar Shaikh Date: 02/06/19 04:10 Initialization Date: 02/06/19 04:10 - General Post-Op/Procedure Note Date of Surgery/Procedure: 02/06/19 Operative Procedure(s): low segment transverse Pre Op Diagnosis: 29 weeks plus gestation, twin , breech/transverse lie , labor (completely dilated with spontaneous rupture membranes at approximately 0245 hours clear fluid) Post-Op Diagnosis: Same Anesthesia Technique: Spinal Primary Surgeon: Bolivar Shaikh Secondary Surgeon: Delgado Lee Anesthesia Provider: Vivienne Purvis Reason Compliance Administrator Was Necessary: Difficulty of surgery, decrease comorbidity and mortality, retraction Role of Compliance Administrator: Difficulty of surgery, decrease comorbidity and mortality, retraction Fluid Replacement, Intraop: 1,500 Output, Urine Amount: 325 EBL in mLs: 600 Drain/Tube Comments:: Alvarado Complications: None Condition: Good Free Text/Narrative:: Patient was transported to the operating room and placed under spinal anesthesia in the supine position with wedge under the right hip and right flank SCDs in place and functioning prior surgery Ancef 2 g given intravenously prior surgery. Timeout performed. Prepared and draped in a sterile fashion utilizing iodine prep. Adequate level of anesthesia was confirmed and in the operating room transverse incision made and care was sharp section to into the anterior fascia peritoneal cavity was entered without difficulty bladder flap created pushed caudad. Low segment transverse was performed with blood-tinged amnionic fluid upon entry into the amnionic cavity. Nurse assisted pushing the breech vaginally towards the incision and the head of the breech was carefully delivered and the remaining portion the body was delivered. Twin A's cord was clamped with a straight clamp. Twin B was transverse lie with head to the maternal left the feet were grasped and the breech was carefully delivered through the incision gently delivering the right and left arm and head without difficulty. When these cord was clamped with a curved clamp. Cord blood was then collected from twin A and then twin B's cord and the placenta was removed manually. Inspection of the placenta suggested possible marginal abruption on one edge of the placenta, placenta sent to pathology for tissue evaluation. Endometrial cavity was inspected. Sponge needle pack and asthma count correct upon closure of the uterus. Both tubes and ovaries appeared normal. The low segment transverse was closed in 2 layers using 0 Monocryl running locking suture for the first layer and second layer closed with a horizontal modified Lembert suture (imbricating) hemostasis was obtained one additional [id number] suture at the junction of the left and middle third of the incision. Uterus replaced into the abdominal cavity after cleaning clots from the gutters and cul-de-sac. Reinspection of the operative site showed no bleeding. Sponge needle pack instrument count correct 2 and the abdominal cavity was closed with #1 PDS running suture. The irrigation of subcutaneoustissue was performed and skin was closed with subcuticular 3-0 Monocryl with Henry needle and Dermabond Preneo applied. Clots were cleaned from the vagina at the end the procedure. Patient was transported postanesthesia care unit in satisfactory condition. Twin A was delivered at 0334 hrs 1250 Grams/2#12..1 oz, 4/6/7.. male liveborn twin B was delivered at 0336 hrs, female liveborn 1350 grams/2#15.6 oz 0/3/7 pediatricians were present at delivery (Dr. Ruiz, Dr. Dc) and cared for the newborns. This note was created, at least in part, by the use of [employer] voice dictation system. Inadvertent typographical errors, due to software recognition problems, may exist. Patient doing well, will be dismissed at 1630 after next dose of Toradol. Will ride to see newborns (transferred due to 29 weeks gestation) RTC 02/17/19 HPI Initial Comments: [facility] Post-Op/Procedure Note Patient Name: CARY MARTINEZ Date of : 89 Patient Status: Inpatient Attending Provider: Bolivar Shaikh Date: 02/06/19 04:10 Initialization Date: 02/06/19 04:10 - General Post-Op/Procedure Note Date of Surgery/Procedure: 02/06/19 Operative Procedure(s): low segment transverse Pre Op Diagnosis: 29 weeks plus gestation, twin , breech/transverse lie , labor (completely dilated with spontaneous rupture membranes at approximately 0245 hours clear fluid) Post-Op Diagnosis: Same Anesthesia Technique: Spinal Primary Surgeon: Bolivar Shaikh Secondary Surgeon: Delgado Lee Anesthesia Provider: Vivienne Purvis Reason Compliance Administrator Was Necessary: Difficulty of surgery, decrease comorbidity and mortality, retraction Role of Compliance Administrator: Difficulty of surgery, decrease comorbidity and mortality, retraction Fluid Replacement, Intraop: 1,500 Output, Urine Amount: 325 EBL in mLs: 600 Drain/Tube Comments:: Alvarado Complications: None Condition: Good Free Text/Narrative:: Patient was transported to the operating room and placed under spinal anesthesia in the supine position with wedge under the right hip and right flank SCDs in place and functioning prior surgery Ancef 2 g given intravenously prior surgery. Timeout performed. Prepared and draped in a sterile fashion utilizing iodine prep. Adequate level of anesthesia was confirmed and in the operating room transverse incision made and care was sharp section to into the anterior fascia peritoneal cavity was entered without difficulty bladder flap created pushed caudad. Low segment transverse was performed with blood-tinged amnionic fluid upon entry into the amnionic cavity. Nurse assisted pushing the breech vaginally towards the incision and the head of the breech was carefully delivered and the remaining portion the body was delivered. Twin A's cord was clamped with a straight clamp. Twin B was transverse lie with head to the maternal left the feet were grasped and the breech was carefully delivered through the incision gently delivering the right and left arm and head without difficulty. When these cord was clamped with a curved clamp. Cord blood was then collected from twin A and then twin B's cord and the placenta was removed manually. Inspection of the placenta suggested possible marginal abruption on one edge of the placenta, placenta sent to pathology for tissue evaluation. Endometrial cavity was inspected. Sponge needle pack and asthma count correct upon closure of the uterus. Both tubes and ovaries appeared normal. The low segment transverse was closed in 2 layers using 0 Monocryl running locking suture for the first layer and second layer closed with a horizontal modified Lembert suture (imbricating) hemostasis was obtained one additional [id number]-bvrdn suture at the junction of the left and middle third of the incision. Uterus replaced into the abdominal cavity after cleaning clots from the gutters and cul-de-sac. Reinspection of the operative site showed no bleeding. Sponge needle pack instrument count correct 2 and the abdominal cavity was closed with #1 PDS running suture. The irrigation of subcutaneoustissue was performed and skin was closed with subcuticular 3-0 Monocryl with Henry needle and Dermabond Preneo applied. Clots were cleaned from the vagina at the end the procedure. Patient was transported postanesthesia care unit in satisfactory condition. Twin A was delivered at 0334 hrs 1250 Grams/2#12..1 oz, 4/6/7.. male liveborn twin B was delivered at 0336 hrs, female liveborn 1350 grams/2#15.6 oz 0/3/7 pediatricians were present at delivery (Dr. Ruiz, Dr. Dc) and cared for the newborns. This note was created, at least in part, by the use of [employer] voice dictation system. Inadvertent typographical errors, due to software recognition problems, may exist. Patient doing well, will be dismissed at 1630 after next dose of Toradol. Will ride to see newborns (transferred due to 29 weeks gestation) RTC 02/17/19 Brief History: [facility] . Post-Op/Procedure Note. [facility]: [id number]. Date of : Patient Status: Inpatient. Attending Provider: Bolivar Shaikhccount Number: [id number]. Date: 02/06/19 04:10Initialization Date: 02/06/19 04:10. - General Post-Op/Procedure Note. Date of Surgery/Procedure: 02/06/19. Operative Procedure(s): low segment transverse . Pre Op Diagnosis: 29 weeks plus gestation, twin , breech/transverse lie, labor ( completely dilated with spontaneous rupture membranes at approximately 0245 hours clear fluid). Post-Op Diagnosis: Same. Anesthesia Technique: Spinal. Primary Surgeon: Bolivar Shaikh. Secondary Surgeon: Delgado Lee. Anesthesia Provider: Vivienne J Grosulak. Reason Compliance Administrator Was Necessary: Difficulty of surgery, decrease comorbidity and mortality, retraction. Role of Compliance Administrator: Difficulty of surgery, decrease comorbidity and mortality, retraction. Fluid Replacement, Intraop: 1,500. Output, Urine Amount: 325. EBL in mLs: 600. Drain/Tube Comments:: Alvarado. Complications: None. Condition : Good. Free Text/Narrative:: Patient was transported to the operating room and placed under spinal anesthesia in the supine position with wedge under the right hip and right flank SCDs in place and functioning prior surgery Ancef 2 g given intravenously prior surgery. Timeout performed. Prepared and draped in a sterile fashion utilizing iodine prep. Adequate level of anesthesia was confirmed and in the operating room transverse incision made and care was sharp section to into the anterior fascia peritoneal cavity was entered without difficulty bladder flap created pushed caudad. Low segment transverse C- section was performed with blood-tinged amnionic fluid upon entry into the amnionic cavity. Nurse assisted pushing the breech vaginally towards the incision and the head of the breech was carefully delivered and the remaining portion the body was delivered. Twin A's cord was clamped with a straight clamp. Twin B was transverse lie with head to the maternal left the feet were grasped and the breech was carefully delivered through the incision gently delivering the right and left arm and head without difficulty. When these cord was clamped with a curved clamp. Cord blood was then collected from twin A and then twin B's cord and the placenta was removed manually. Inspection of the placenta suggested possible marginal abruption on one edge of the placenta, placenta sent to pathology for tissue evaluation. Endometrial cavity was inspected. Sponge needle pack and asthma count correct upon closure of the uterus. Both tubes and ovaries appeared normal. The low segment transverse C- section was closed in 2 layers using 0 Monocryl running locking suture for the first layer and second layer closed with a horizontal modified Lembert suture ( imbricating) hemostasis was obtained one additional [id number] suture at the junction of the left and middle third of the incision. Uterus replaced into the abdominal cavity after cleaning clots from the gutters and cul-de-sac. Reinspection of the operative site showed no bleeding. Sponge needle pack instrument count correct 2 and the abdominal cavity was closed with #1 PDS running suture. The irrigation of subcutaneoustissue was performed and skin was closed with subcuticular 3-0 Monocryl with Henry needle and Dermabond Preneo applied. Clots were cleaned from the vagina at the end the procedure. Patient was transported postanesthesia care unit in satisfactory condition. Twin A was delivered at 0334 hrs 1250 Grams/2#12..1 oz, 4/6/7.. male liveborn twin B was delivered at 0336 hrs, female liveborn 1350 grams/2#15.6 oz 0/3/7 pediatricians were present at delivery (Dr. Ruiz, Dr. Dc) and cared for the newborns. This note was created, at least in part, by the use of [employer] voice dictation system. Inadvertent typographical errors, due to software recognition problems, may exist. Patient doing well, will be dismissed at 1630 after next dose of Toradol. Will ride to see newborns (transferred due to 29 weeks gestation). RTC 02/17/19 Diagnosis: Stroke: No - Discharge Data Discharge Date: 02/06/19 Discharge Disposition: Home, Self-Care 01 Condition: Good - Discharge Diagnosis/Problem(s) (1) 29 weeks gestation of SNOMED Code(s): 18169077 ICD Code: Z3A.29 - 29 WEEKS GESTATION OF Status: Acute Current Visit: Yes (2) Premature labor SNOMED Code(s): 1048781 ICD Code: O60.00 - LABOR WITHOUT DELIVERY, UNSPECIFIED TRIMESTER Status: Acute Current Visit: Yes Qualifiers: labor trimester: third trimester labor delivery status: with delivery in third trimester Fetus number: fetus 1 of multiple gestation Qualified Code(s): O60.14X1 - labor third trimester with delivery third trimester, fetus 1 (3) Breech presentation SNOMED Code(s): 4409264 ICD Code: O32.1XX0 - MATERNAL CARE FOR BREECH PRESENTATION, UNSP Status: Acute Current Visit: Yes Qualifiers: Fetus number: fetus 1 of multiple gestation Qualified Code(s): O32.1XX1 - Maternal care for breech presentation, fetus 1 (4) Transverse lie of fetus SNOMED Code(s): 74964530 ICD Code: O32.2XX0 - MATERNAL CARE FOR TRANSVERSE AND OBLIQUE LIE, UNSP Status: Acute Current Visit: Yes Qualifiers: Fetus number: fetus 2 of multiple gestation Qualified Code(s): O32.2XX2 - Maternal care for transverse and oblique lie, fetus 2 (5) Dichorionic diamniotic twin in second trimester SNOMED Code(s): 151484129 ICD Code: O30.042 - TWIN , DICHORIONIC/DIAMNIOTIC, SECOND TRIMESTER Status: Acute Current Visit: No - Patient Summary/Data Operative Procedure(s) Performed: low segment transverse Complications: None Consults: None Hospital Course: Uneventful - Patient Instructions Diet: Usual Diet as Tolerated Driving: Do Not Drive (2 weeks) Showering/Bathing: May Shower, No Tub Bathing/Swimming (6 weeks) Wound/Incision Care: Keep Operative Site/Wound Site Clean and Dry Notify Provider of: Fever, Increased Pain, Swelling and Redness, Drainage, Nausea and/or Vomiting - Discharge Plan *PRESCRIPTION DRUG MONITORING PROGRAM REVIEWED*: Yes *COPY OF PRESCRIPTION DRUG MONITORING REPORT IN PATIENT SEVEN: Yes Prescriptions/Med Rec: Acetaminophen 325 mg PO Q6H #50 capsule Acetaminophen/oxyCODONE [Percocet 325-5 MG] 1 - 2 tab PO Q6H PRN #30 tablet PRN Reason: Pain (Moderate 4-6) Ondansetron [Zofran ODT] 4 mg PO Q6H PRN #20 tab.dis PRN Reason: Nausea Home Medications: Home Meds PNV95/Ferrous Fumarate/FA [ Vitamin Tablet] 1 each PO DAILY 04/23/18 [ History] Acetaminophen [Tylenol] 650 mg PO Q6H #50 tablet 04/24/18 [Rx] Acetaminophen 325 mg PO Q6H #50 capsule 02/06/19 [Rx] Acetaminophen/oxyCODONE [Percocet 325-5 MG] 1 - 2 tab PO Q6H PRN #30 tablet [Rx] Ibuprofen [Motrin] 600 mg PO Q6H PRN tablet 02/06/19 [Rx] Ibuprofen [Motrin] 600 mg PO Q6H PRN #0 tablet 02/06/19 [Rx] Lanolin [Lansinoh HPA] 1 applic TOP ASDIRECTED PRN tube 02/06/19 [Rx] Ondansetron [Zofran ODT] 4 mg PO Q6H PRN #20 tab.dis 02/06/19 [Rx] Simethicone 160 mg PO QID tab.chew 02/06/19 [Rx] Referrals: Bolivar Shaikh MD [Primary Care Provider] - (02/17/19 postop check) - Discharge Summary/Plan Comment DC Time >30 min.: No Discharge Summary/Plan Comment: [facility] Post-Op/Procedure Note Patient Name: CARY MARTINEZ Date of : 89 Patient Status: Inpatient Attending Provider: Bolivar Shaikh Date: 02/06/19 04:10 Initialization Date: 02/06/19 04:10 - General Post-Op/Procedure Note Date of Surgery/Procedure: 02/06/19 Operative Procedure(s): low segment transverse Pre Op Diagnosis: 29 weeks plus gestation, twin , breech/transverse lie , labor (completely dilated with spontaneous rupture membranes at approximately 0245 hours clear fluid) Post-Op Diagnosis: Same Anesthesia Technique: Spinal Primary Surgeon: Bolivar Shaikh Secondary Surgeon: Delgado Lee Anesthesia Provider: Vivienne Purvis Reason Compliance Administrator Was Necessary: Difficulty of surgery, decrease comorbidity and mortality, retraction Role of Compliance Administrator: Difficulty of surgery, decrease comorbidity and mortality, retraction Fluid Replacement, Intraop: 1,500 Output, Urine Amount: 325 EBL in mLs: 600 Drain/Tube Comments:: Alvarado Complications: None Condition: Good Free Text/Narrative:: Patient was transported to the operating room and placed under spinal anesthesia in the supine position with wedge under the right hip and right flank SCDs in place and functioning prior surgery Ancef 2 g given intravenously prior surgery. Timeout performed. Prepared and draped in a sterile fashion utilizing iodine prep. Adequate level of anesthesia was confirmed and in the operating room transverse incision made and care was sharp section to into the anterior fascia peritoneal cavity was entered without difficulty bladder flap created pushed caudad. Low segment transverse was performed with blood-tinged amnionic fluid upon entry into the amnionic cavity. Nurse assisted pushing the breech vaginally towards the incision and the head of the breech was carefully delivered and the remaining portion the body was delivered. Twin A's cord was clamped with a straight clamp. Twin B was transverse lie with head to the maternal left the feet were grasped and the breech was carefully delivered through the incision gently delivering the right and left arm and head without difficulty. When these cord was clamped with a curved clamp. Cord blood was then collected from twin A and then twin B's cord and the placenta was removed manually. Inspection of the placenta suggested possible marginal abruption on one edge of the placenta, placenta sent to pathology for tissue evaluation. Endometrial cavity was inspected. Sponge needle pack and asthma count correct upon closure of the uterus. Both tubes and ovaries appeared normal. The low segment transverse was closed in 2 layers using 0 Monocryl running locking suture for the first layer and second layer closed with a horizontal modified Lembert suture (imbricating) hemostasis was obtained one additional [id number]-af-[id number] suture at the junction of the left and middle third of the incision. Uterus replaced into the abdominal cavity after cleaning clots from the gutters and cul-de-sac. Reinspection of the operative site showed no bleeding. Sponge needle pack instrument count correct 2 and the abdominal cavity was closed with #1 PDS running suture. The irrigation of subcutaneoustissue was performed and skin was closed with subcuticular 3-0 Monocryl with Henry needle and Dermabond Preneo applied. Clots were cleaned from the vagina at the end the procedure. Patient was transported postanesthesia care unit in satisfactory condition. Twin A was delivered at 0334 hrs 1250 Grams/2#12..1 oz, 4/6/7.. male liveborn twin B was delivered at 0336 hrs, female liveborn 1350 grams/2#15.6 oz 0/3/7 pediatricians were present at delivery (Dr. Ruiz, Dr. Dc) and cared for the newborns. This note was created, at least in part, by the use of [employer] voice dictation system. Inadvertent typographical errors, due to software recognition problems, may exist. Patient doing well, will be dismissed at 1630 after next dose of Toradol. Will ride to see newborns (transferred due to 29 weeks gestation) RTC 02/17/19 - Patient Data Vitals - Most Recent: Last Vital Signs Temp 98.2 F 02/06/19 08:39 Pulse 89 02/06/19 08:39 Resp 16 02/06/19 09:00 BP 125/73 02/06/19 08:39 Pulse Ox 99 02/06/19 09:00 Weight - Most Recent: 224 lb I&O - Last 24 hours: Intake & Output 02/05/19 02/06/19 02/06/19 22:59 06:59 14:59 Intake Total 700 1500 Output Total 375 325 Balance 325 1175 Lab Results - Last 24 hrs: Laboratory Results - last 24 hr 02/06/19 02/06/19 02/06/19 Range/Units 01:30 02:20 02:20 WBC 14.95 H (3.98-10.04) K/mm3 RBC 4.09 (3.98-5.22) M/mm3 Hgb 12.7 (11.2-15.7) gm/L Hct 36.9 (34.1-44.9) % MCV 90.2 (79.4-94.8) fl MCH 31.1 (25.6-32.2) pg MCHC 34.4 (32.2-35.5) g/dl RDW Std Deviation 42.4 (36.4-46.3) fL Plt Count 170 L (182-369) K/mm3 MPV 10.7 (9.4-12.3) fl Neut % (Auto) 73.8 H (34.0-71.1) % Lymph % (Auto) 17.3 L (19.3-51.7) % [place] % (Auto) 8.0 (4.7-12.5) % Eos % (Auto) 0.3 L (0.7-5.8) Baso % (Auto) 0.1 (0.1-1.2) % Neut # (Auto) 11.04 H (1.56-6.13) K/mm3 Lymph # (Auto) 2.58 (1.18-3.74) K/mm3 [place] # (Auto) 1.20 H (0.24-0.36) K/mm3 Eos # (Auto) 0.04 (0.04-0.36) K/mm3 Baso # (Auto) 0.02 (0.01-0.08) K/mm3 Manual Slide Review Urine Color Yellow (Yellow) Urine Appearance Clear (Clear) Urine pH 7.0 (5.0-8.0) Ur Specific [place] 1.015 (1.005-1.030) Urine Protein Negative (Negative) Urine Glucose (UA) Negative (Negative) Urine Ketones Negative (Negative) Urine Occult Blood Trace-intact H (Negative) Urine Nitrite Negative (Negative) Urine Bilirubin Negative (Negative) Urine Urobilinogen 0.2 (0.2-1.0) Ur Leukocyte Esterase 2+ H (Negative) Urine RBC 0-5 (0-5) /hpf Urine WBC 5-10 H (0-5) /hpf Ur Squamous Epith Cells 0-5 (0-5) /hpf Urine Bacteria Few (FEW) /hpf Urine Mucus Few (FEW) /hpf Blood Type O POSITIVE Gel Antibody Screen Negative 02/06/19 Range/Units 07:05 WBC 17.12 H (3.98-10.04) K/mm3 RBC 3.69 L (3.98-5.22) M/mm3 Hgb 11.6 (11.2-15.7) gm/L Hct 33.5 L (34.1-44.9) % MCV 90.8 (79.4-94.8) fl MCH 31.4 (25.6-32.2) pg MCHC 34.6 (32.2-35.5) g/dl RDW Std Deviation 41.9 (36.4-46.3) fL Plt Count 170 L (182-369) K/mm3 MPV 10.3 (9.4-12.3) fl Neut % (Auto) 86.8 H (34.0-71.1) % Lymph % (Auto) 7.3 L (19.3-51.7) % [place] % (Auto) 5.4 (4.7-12.5) % Eos % (Auto) 0.1 L (0.7-5.8) Baso % (Auto) 0.1 (0.1-1.2) % Neut # (Auto) 14.88 H (1.56-6.13) K/mm3 Lymph # (Auto) 1.25 (1.18-3.74) K/mm3 [place] # (Auto) 0.92 H (0.24-0.36) K/mm3 Eos # (Auto) 0.01 L (0.04-0.36) K/mm3 Baso # (Auto) 0.01 (0.01-0.08) K/mm3 Manual Slide Review Abnormal smear Urine Color (Yellow) Urine Appearance (Clear) Urine pH (5.0-8.0) Ur Specific [place] (1.005-1.030) Urine Protein (Negative) Urine Glucose (UA) (Negative) Urine Ketones (Negative) Urine Occult Blood (Negative) Urine Nitrite (Negative) Urine Bilirubin (Negative) Urine Urobilinogen (0.2-1.0) Ur Leukocyte Esterase (Negative) Urine RBC (0-5) /hpf Urine WBC (0-5) /hpf Ur Squamous Epith Cells (0-5) /hpf Urine Bacteria (FEW) /hpf Urine Mucus (FEW) /hpf Blood Type Gel Antibody Screen Med Orders - Current: Current Medications Acetaminophen (Tylenol) 650 mg PO Q4H PRN PRN Reason: mild pain or fever Diphenhydramine HCl (Benadryl) 25 mg IVPUSH Q6H PRN PRN Reason: Itching or Nausea Emollient Ointment (Lansinoh Hpa) 0 gm TOP ASDIRECTED PRN PRN Reason: Sore Nipples Ephedrine Sulfate (Ephedrine Sulfate) 5 mg IVPUSH SEECOMMENT PRN PRN Reason: Other Dextrose/Lactated Ringer's (Dextrose 5%-Lactated Ringers) 1,000 mls @ 125 mls/ hr IV ASDIRECTED [facility] Stop: 02/06/19 12:31 Last Admin: 02/06/19 06:48 Dose: 125 mls/hr Ibuprofen (Motrin) 600 mg PO Q6H PRN PRN Reason: mild pain or fever Ketorolac Tromethamine (Toradol) 30 mg IVPUSH Q6H [facility] Stop: 02/06/19 22:01 Last Admin: 02/06/19 10:09 Dose: 30 mg Naloxone HCl (Narcan) 0.1 mg IVPUSH SEECOMMENT PRN PRN Reason: Respiratory Depression Ondansetron HCl (Zofran) 4 mg IV Q8H PRN PRN Reason: Nausea/Vomiting Oxycodone/Acetaminophen (Percocet 325-5 Mg) 1 - 2 tab PO Q4H PRN PRN Reason: Pain (moderate 4-6) Last Admin: 02/06/19 08:22 Dose: 2 tab Simethicone (Simethicone) 160 mg PO QID [facility] Last Admin: 02/06/19 08:25 Dose: 160 mg Sodium Chloride (Saline Flush) 10 ml FLUSH ASDIRECTED PRN PRN Reason: Keep Vein Open Discontinued Medications Artificial Tears (Artificial Tears Ointment) Confirm Administered Dose 3.5 gm .ROUTE .STK-MED ONE Stop: 02/06/19 03:19 Bupivacaine HCl (Marcaine 0.5%) Confirm Administered Dose 30 ml .ROUTE .STK-MED ONE Stop: 02/06/19 03:45 Cefazolin Sodium (Ancef) Confirm Administered Dose 2 gm .ROUTE .STK-MED ONE Stop: 02/06/19 03:19 Citric Acid/Sodium Citrate (Bicitra Solution) Confirm Administered Dose 30 ml .ROUTE .STK-MED ONE Stop: 02/06/19 03:00 Diphenhydramine HCl (Benadryl) 25 mg IVPUSH Q6H PRN PRN Reason: pruritis Ephedrine Sulfate (Ephedrine Sulfate) 5 mg IVPUSH ASDIRECTED PRN PRN Reason: Hypotension Fentanyl (Sublimaze) 50 mcg IVPUSH Q5M PRN PRN Reason: Pain Hydromorphone HCl (Dilaudid) 0.5 mg IVPUSH Q15M PRN PRN Reason: Pain (severe 7-10) Lactated Ringer's (Ringers, Lactated) Confirm Administered Dose 1,000 mls @ as directed .ROUTE .STK-MED ONE Stop: 02/06/19 02:10 Lactated Ringer's (Ringers, Lactated) 1,000 mls @ 100 mls/hr IV ASDIRECTED MATTEO Lactated Ringer's (Ringers, Lactated) Confirm Administered Dose 1,000 mls @ as directed .ROUTE .STK-MED ONE Stop: 02/06/19 03:42 Lactated Ringer's (Ringers, Lactated) Confirm Administered Dose 1,000 mls @ as directed .ROUTE .STK-MED ONE Stop: 02/06/19 03:48 Phenylephrine HCl 1 mg/ Sodium (Chloride) 10.1 mls @ 1 mls/sec IV TITRATE MATTEO; Protocol Ketorolac Tromethamine (Toradol) Confirm Administered Dose 30 mg .ROUTE .STK- MED ONE Stop: 02/06/19 03:42 Meperidine HCl (Meperidine) Confirm Administered Dose 50 mg .ROUTE .STK-MED ONE Stop: 02/06/19 03:46 Metoclopramide HCl (Reglan) Confirm Administered Dose 10 mg .ROUTE .STK-MED ONE Stop: 02/06/19 03:00 Morphine Sulfate (Duramorph Pf) Confirm Administered Dose 10 mg .ROUTE .STK-MED ONE Stop: 02/06/19 03:20 Nalbuphine HCl (Nubain) 10 mg IVPUSH Q2H PRN PRN Reason: Pain Ondansetron HCl (Zofran) Confirm Administered Dose 4 mg .ROUTE .STK-MED ONE Stop: 02/06/19 03:19 Ondansetron HCl (Zofran) 4 mg IVPUSH ONETIME PRN PRN Reason: Nausea/Vomiting Oxytocin (Pitocin) Confirm Administered Dose 20 unit .ROUTE .STK-MED ONE Stop: 02/06/19 03:19 Phenylephrine HCl (Phenylephrine In Ns 100 Mcg/Ml) Confirm Administered Dose 1 mg .ROUTE .STK-MED ONE Stop: 02/06/19 03:43 Sodium Chloride (Saline Flush) 10 ml FLUSH ASDIRECTED PRN PRN Reason: Keep Vein Open
--- NOTE | 2019-02-06 12:24 | PCM48HPAN ---
Post Anesthesia Note - EVALUATION WITHIN 48HRS OF ANESTHETIC Vital Signs in Normal Range: Yes Patient Participated in Evaluation: Yes Respiratory Function Stable: Yes Airway Patent: Yes Cardiovascular Function Stable: Yes Hydration Status Stable: Yes Pain Control Satisfactory: Yes Nausea and Vomiting Control Satisfactory: Yes Mental Status Recovered: Yes
[2019-02-07] MEDS ORDERED: Ibuprofen 600 MG Tab PO PRN (04:00)
== END 2019-02-06 16:40 | disposition home or self-care (01) | DRG 540 ==
LOC: JD.OBCHECK 00:38 → JD.OB 00:38 → JD.OBCHECK 02:09 → JD.OB 02:10 → UNDOADMOB 02:10 → JD.OB 03:34 → INTOOBSV 03:34 → OBSVTOIN 03:34
PROVIDERS: ADMIT Obstetrics & Gynecology; ATTEND Obstetrics & Gynecology
PROC: 10D00Z1 Extraction of Products of Conception, Low, Open Approach (ICD-10-PCS; principal; 2019-02-06)
DX: O32.1XX0 Maternal care for breech presentation, not applicable or unspecified (principal); Z3A.29 29 weeks gestation of pregnancy; O32.2XX2 Maternal care for transverse and oblique lie, fetus 2; O30.043 Twin pregnancy, dichorionic/diamniotic, third trimester; Z37.2 Twins, both liveborn
CPT/HCPCS: 01961; 36415; 59025; 76815; 76815-26; 81001; 85025; 86592; 86850; 86900; 86901; 87086; 94762; A9270-GY; J0690; J1885; J2175; J2270; J2370; J2405; J2590; J3490; J7042; J7120

== ENCOUNTER 2022-06-23 06:18 | Inpatient (IN) | payer BC ==
[2022-06-23] MEDS ORDERED: Betamethasone Acetate/Betamethasone Sod Phosphate 30 MG/5 ML MDV ONE (07:07)
[2022-06-23] MEDS ORDERED: Lactated Ringers 1,000 ML ONE (07:09)
[2022-06-23] MEDS ORDERED: Magnesium Sulfate/Water 50 ML ONE ×2 (07:09→07:23)
[2022-06-23] MEDS ORDERED: Magnesium Sulfate/Water 40 GM/1,000 ML BAG ONE (07:09)
[2022-06-23] MEDS ORDERED: Nalbuphine HCl 10 MG/ 1ML Amp IVPUSH PRN (07:11)
[2022-06-23] MEDS ORDERED: Ampicillin 2 GM Vial ONE (07:11)
[2022-06-23] MEDS ORDERED: Sodium Chloride 0.9% 10 ML Syringe FLUSH PRN (07:11)
[2022-06-23] MEDS ORDERED: Sodium Chloride 0.9% 50 ML ONE (07:11)
[2022-06-23] MEDS ORDERED: Betamethasone Acetate/Betamethasone Sod Phosphate 30 MG/5 ML MDV IM ONE (07:11)
[2022-06-23] MEDS ORDERED: Ondansetron 4 MG/2 ML SDV IVPUSH PRN (07:11)
[2022-06-23] MEDS: Lactated Ringers 1,000 ML IV SCH ×2 (07:12→08:39)
[2022-06-23] MEDS ORDERED: Oxytocin/Lactated Ringers 10 UNIT/1,000 ML BAG IV SCH (07:15)
[2022-06-23] MEDS ORDERED: Ampicillin 2 GM in Sodium Chloride 0.9% 100 ML IV ONE (07:15)
[2022-06-23] MEDS ORDERED: ePHEDrine 50 MG/ML SDV IVPUSH PRN (07:27)
[2022-06-23] MEDS ORDERED: Bupivacaine/fentaNYL/NS 100 ML Bag EPIDUR PRN (07:27)
[2022-06-23] MEDS ORDERED: fentaNYL 100 MCG/2 ML SDV EPIDUR PRN (07:27)
[2022-06-23] MEDS ORDERED: diphenhydrAMINE 50 MG/ML SDV IVPUSH PRN (07:27)
[2022-06-23] MEDS ORDERED: Methylergonovine 0.2 MG/1 ML Amp ONE (08:18)
[2022-06-23] MEDS ORDERED: Sodium Chloride 0.9% 10 ML Syringe FLUSH SCH (09:00)
[2022-06-23] MEDS ORDERED: Lidocaine 1.5% with EPINEPHrine 1:200,000 5 ML Amp ONE (10:00)
[2022-06-23] MEDS ORDERED: Witch Hazel Medicated Pads 40/Jar TOP PRN (10:40)
[2022-06-23] MEDS ORDERED: Docusate Sodium 100 MG Cap PO PRN (10:40)
[2022-06-23] MEDS ORDERED: Acetaminophen 325 MG Tab PO PRN (10:40)
[2022-06-23] MEDS ORDERED: Benzocaine/Menthol 20%-0.5% Spray 78 GM Cannister TOP PRN (10:40)
[2022-06-23] MEDS ORDERED: Ibuprofen 600 MG Tab PO PRN (10:40)
[2022-06-23] MEDS ORDERED: Ampicillin 1 GM in Sodium Chloride 0.9% 100 ML IV SCH (11:15)
== END 2022-06-23 14:30 | disposition home or self-care (01) | DRG 560 ==
LOC: JD.OBCHECK 06:18 → JD.OB 06:25 → JD.OBCHECK 07:11 → JD.OB 07:12 → OBSVTOIN 09:40 → JD.OB 09:54
PROVIDERS: ADMIT Obstetrics & Gynecology; ATTEND Obstetrics & Gynecology
PROC: 10E0XZZ Delivery of Products of Conception, External Approach (ICD-10-PCS; principal; 2022-06-23)
PROC: 10907ZC Drainage of Amniotic Fluid, Therapeutic from Products of Conception, Via Natural or Artificial Opening (ICD-10-PCS; 2022-06-23)
PROC: 0HQ9XZZ Repair Perineum Skin, External Approach (ICD-10-PCS; 2022-06-23)
PROC: 3E0R3BZ Introduction of Anesthetic Agent into Spinal Canal, Percutaneous Approach (ICD-10-PCS; 2022-06-23)
PROC: 00HU33Z Insertion of Infusion Device into Spinal Canal, Percutaneous Approach (ICD-10-PCS; 2022-06-23)
DX: O60.14X0 Preterm labor third trimester with preterm delivery third trimester, not applicable or unspecified (principal); Z3A.32 32 weeks gestation of pregnancy; Z37.0 Single live birth; O70.0 First degree perineal laceration during delivery
CPT/HCPCS: 36415; 51701; 59025; 59409; 62273; 80053; 81001; 82570; 84156; 85025; 86592; 86850; 86900; 86901; 87653; A9270-GY; J0290; J0702; J2590; J3010; J7120